=== PATIENT | female | born 1975 ===

== ENCOUNTER 2018-05-16 11:52 | Emergency (ER) | payer OTHER ==
[~2018-05-16] VITALS: Ht 162.6 cm; Wt 97.5 kg
[2018-05-16] MEDS ORDERED: LABETALOL HCL100 MG PO (12:48)
[2018-05-16] MEDS ORDERED: CHLORTHALIDONE25 MG PO (12:49)
== END 2018-05-17 00:30 | disposition home or self-care (01) ==
LOC: ER 11:52
DX: N93.8 Other specified abnormal uterine and vaginal bleeding (principal); N83.291 Other ovarian cyst, right side; D25.9 Leiomyoma of uterus, unspecified